=== PATIENT | female | born 1970 | race Caucasian/White ===

== ENCOUNTER 2016-05-23 10:28 | Day surgery (SDC) | payer OTHER ==
[~2016-05-23 10:28] MED LIST: ACETAMINOPHEN 1,000 MG/100 ML 100 ML IV ONE; CELECOXIB 100 MG CAPSULE PO ONE; ceFAZolin 2 GM/50 ML 50 ML IV ONE; cefOXitin 2 GM in SODIUM CHLORIDE 0.9% MINIBAG 100 ML IV ONE
[2016-05-23] MEDS ORDERED: LACTATED RINGERS 1,000 ML IV ONE ×2 (11:13→13:25)
[2016-05-23] MEDS ORDERED: fentaNYL 100 MCG/2 ML VIAL IVP ONE (12:30)
[2016-05-23] MEDS ORDERED: MIDAZOLAM 2 MG/2 ML VIAL IVP ONE (12:30)
[2016-05-23] MEDS ORDERED: MORPHINE PF 5 MG/10 ML AMP EP ONE (12:30)
[2016-05-23] MEDS ORDERED: PROPOFOL 200 MG/20 ML VIAL IVP ONE (12:30)
[2016-05-23] MEDS ORDERED: DEXAMETHASONE 4 MG/ML VIAL IVP ONE (12:30)
[2016-05-23] MEDS ORDERED: GLYCOPYRROLATE 1 MG/5 ML VIAL IVP ONE (12:30)
[2016-05-23] MEDS ORDERED: LIDOCAINE-MPF 2% 5 ML VIAL IM ONE (12:30)
[2016-05-23] MEDS ORDERED: ROPIVACAINE 0.2% PF 10 ML VIAL EPI ONE (12:56)
[2016-05-23] MEDS ORDERED: BUPIVACAINE 0.5% PF 10 ML VIAL IM ONE (12:58)
[2016-05-23] MEDS ORDERED: MORPHINE PF 5 MG/10 ML AMP EPI ONE (12:58)
[2016-05-23] MEDS: fentaNYL 100 MCG/2 ML VIAL ONE ×2 (13:29→13:40)
[2016-05-23] MEDS: HYDROmorphone 1 MG/ML SYRINGE ONE ×2 (13:51→14:03)
[2016-05-23] MEDS ORDERED: HYDROmorphone 1 MG/ML SYRINGE ONE (14:10)
[2016-05-23] MEDS ORDERED: oxyCOD/ACETAMIN 5 MG/325 MG TABLET PO ONE (14:54)
== END 2016-05-23 10:29 | disposition home or self-care (01) ==
PROC: 0SBD4ZZ Excision of Left Knee Joint, Percutaneous Endoscopic Approach (ICD-10-PCS; principal; 2016-05-23 11:30)
DX: M67.52 Plica syndrome, left knee (principal); M25.862 Other specified joint disorders, left knee; Z87.891 Personal history of nicotine dependence; F32.9 Major depressive disorder, single episode, unspecified
CPT/HCPCS: 29876; 81025; 97162; A9270; J0131; J0690; J1170; J7120